=== PATIENT | female | born 1940 | race Caucasian/White ===

== ENCOUNTER 2018-11-09 07:27 | Day surgery (SDC) | payer OTHER, BC ==
[2018-11-05 13:08] VITALS: BMI 26.2
[2018-11-09 08:58] VITALS: TEMP 97.8
[2018-11-09 09:30] VITALS: BP 140/69; PULSE 78
--- NOTE | 2018-11-11 13:06 | PATH ---
Surgical Pathology Report Patient Name: CLAIRE SHIPLEY [facility]. Rec. #: [id number] /Age/Gender: 1940 (Age: 78) / F Account: [id number] Location: [facility] Taken: 11/09/2018 Received: 11/09/2018 Reported: 11/11/2018 Physicians: Jovany Jaimes M.D. Specimen(s) Received BX POLYP SIGMOID COLON Clinical History History of polyps Postoperative diagnosis: Polyp, diverticulosis, external hemorrhoids Final Diagnosis SIGMOID COLON, POLYP, BIOPSY: COLONIC MUCOSA SHOWING MILD SURFACE HYPERPLASTIC CHANGE. Electronically Signed Francisca Parks M.D. Gross Description Received in formalin, labeled "biopsy polyp sigmoid colon" is a mars, irregular portion of soft tissue measuring 0.5 cm. in greatest dimension. The specimen is submitted in toto in one cassette. /11/09/2018 saudi/11/09/2018
== END 2018-11-09 09:25 | disposition home or self-care (01) ==
LOC: FASU-ENDO 07:27
PROVIDERS: ATTEND Internal Medicine Gastroenterology
PROC: 0DBN8ZX Excision of Sigmoid Colon, Via Natural or Artificial Opening Endoscopic, Diagnostic (ICD-10-PCS; principal; 2018-11-09 08:30)
DX: Z86.010 Personal history of colon polyps (principal); D12.5 Benign neoplasm of sigmoid colon; K57.30 Diverticulosis of large intestine without perforation or abscess without bleeding
CPT/HCPCS: 88305-TC